=== PATIENT | female | born 1995 | race Hispanic/Latino ===

== ENCOUNTER 2024-01-02 13:14 | Emergency (ER) | payer SELFPAY ==
[2024-01-02] MEDS ORDERED: TETRACAINE HCL 0.5% 4ML OPTH ONE (13:25)
[2024-01-02] MEDS ORDERED: FLUORESCEIN SODIUM 1 MG/WRAP ONE (13:25)
[2024-01-02] MEDS ORDERED: HYDROCODONE/APAP 10/325 TAB ONE (13:43)
[2024-01-02] MEDS ORDERED: MORPHINE 4 MG/ML SYR ONE (14:25)
[2024-01-02] MEDS ORDERED: LORazepam 2 MG/ML VIAL ONE (14:25)
--- NOTE | 2024-01-02 15:01 | RAD REPORT ---
EXAM DESCRIPTION: CT - CTFB CLINICAL HISTORY: ocular trauma COMPARISON: No comparisons TECHNIQUE: Axial thin cut noncontrast CT images of the face were obtained with sagittal and coronal reconstruction images. All CT scans are performed using dose optimization technique as appropriate and may include automated exposure control or mA/KV adjustment according to patient size. FINDINGS: Right preseptal mild edema and fat stranding most pronounced along the lids. No retro jojo nal fat stranding or mass. No subperiosteal collection. Extra ocular muscles are symmetric. Globes ar e symmetric. No acute facial bone fracture is seen.The mandible is intact. The globes and orbital contents are grossly unremarkable.The paranasal sinuses and mastoids are clear . IMPRESSION: Right preseptal mild edema and fat stranding most pronounced along the lids. No other acute abnormalities.
--- NOTE | 2024-01-02 15:34 | EDPHYS ---
Physician Documentation [facility] Name: Brittni Penn Age: 28 yrs Sex: Female : 1995 Arrival Date: 01/02/2024 Time: 13:14 Bed 15 Private MD: ED Physician Jerry Tuttle HPI: 01/01 14:12 This 28 yrs old Female presents to ER via Ambulatory with complaints of Eye rt Injury, Eye Swelling. 17:43 Patient presents to the ED with injury to the right eye. Patient states that she was rt mowing lawn, when something hit her eye. Unclear if it was wood or a rock. Reports of pain to that area as well as blurry vision. Denies other acute complaints at this time, symptoms are moderate in severity, no other aggravating or alleviating factors.. 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 - Infectious Disease History:: Denies. CDIFF, C. Auris, ESBL, MRSA (w/in 1 year), VRE (w/in 1 year), TB, . - Family history:: not pertinent. - Social history:: Smoking status: Patient denies any tobacco usage or history of. ROS: 17:43 Constitutional: Negative for fever, chills, and weight loss, Skin: Negative for injury, rt rash, and discoloration, Neuro: Negative for headache, weakness, numbness, tingling, and seizure, Psych: Negative for depression, anxiety, suicide ideation, homicidal ideation, and hallucinations, 17:43 Eyes: Positive for pain, redness, Exam: 17:43 Constitutional: This is a well developed, well nourished patient who is awake, alert, rt and in no acute distress. Head/Face: Normocephalic, atraumatic. Skin: Warm, dry with normal turgor. Normal color with no rashes, no lesions, and no evidence of cellulitis. MS/ Extremity: Pulses equal, no cyanosis. Neurovascular intact. Full, normal range of motion. Neuro: Awake and alert, GCS 15, oriented to person, place, time, and situation. Cranial nerves II-XII grossly intact. Motor strength 5/5 in all extremities. Sensory grossly intact. Cerebellar exam normal. Normal gait. 17:43 Eyes: Extra ocular muscles are intact, pupils are equal round and reactive, no hyphema. Right conjunctiva is injected, scant amount of fluorescein uptake, Onesimo sign is negative. There is bruising to the upper eyelid noted, no laceration.. Vital Signs: 13:22 BP 162 / 110; Pulse 91; Resp 16; Temp 98.8; Pulse Ox 98% ; Weight 54.43 kg; Pain 8/10; iw 15:42 BP 145 / 94; Pulse 81; Resp 18; Pulse Ox 100% ; cp4 13:22 Pain Scale: Adult iw Visual Acuity: 15:25 Left Eye React To Light; Right Eye React To Light; Without Lenses; cp4 MDM: 13:31 Patient medically screened. rt 17:43 Differential diagnosis: Corneal abrasion, eyelid contusion, retrobulbar hematoma, rt traumatic iritis. Data reviewed: vital signs, nurses notes. I considered the following discharge prescriptions or medication management in the emergency department Medications were administered in the Emergency Department. See MAR. Independent interpretation of the following test(s) in the Emergency Department CT Scan: My interpretation is No hematoma seen on my interpretation of CT scan images. Counseling: I had a detailed discussion with the patient and/or guardian regarding the historical points, exam findings, and any diagnostic results supporting the discharge/admit diagnosis, radiology results, the need for outpatient follow up. Response to treatment: the patient's symptoms have mildly improved after treatment. ED course: No signs of retrobulbar hematoma, open globe. Suspected traumatic iritis, will give him atropine, pain medicines, for that. Patient struck to follow-up with an eye doctor, return precautions discussed.. 01/01 13:38 Order name: CT Facial Bones W/O Con; Complete Time: 15:07 rt Administered Medications: 13:49 Drug: Colby PO 10 mg-325 mg 1 tabs PO once Route: PO; cp4 14:01 Follow up: Response: No adverse reaction cp4 15:41 Follow up: Response: No adverse reaction cp4 14:29 Drug: LORazepam IM 1 mg IM once Route: IM; Site: left deltoid; cp4 15:41 Follow up: Response: No adverse reaction cp4 14:30 Drug: morphine IM 4 mg IM once Route: IM; Site: right deltoid; cp4 15:41 Follow up: Response: No adverse reaction cp4 Disposition Summary: 01/02/24 15:33 Discharge Ordered Notes: Location: Home rt Problem: new rt Symptoms: have improved rt Condition: Stable rt Diagnosis - Traumatic iritis rt - Contusion of eyelid rt Followup: rt - With: Bo Rawls MD - When: 2 - 3 days - Reason: Discharge Instructions: - Discharge Summary Sheet rt - Eye Contusion rt Forms: - Medication Reconciliation Form rt - Thank You Letter rt - Antibiotic Education rt - Prescription Opioid Use rt - Patient Portal Instructions rt - Leadership Thank You Letter rt Prescriptions: - Homatropaire 5 % Ophthalmic drops - instill 1 drop OPHTHALMIC route 3 times per day as needed; 1 Each; Refills: 0, rt Product Selection Permitted - acetaminophen-codeine 300-30 mg Oral tablet - take 1 tablet ORAL route every 6 hours as needed for pain; 15 tablet; Refills: rt 0, Product Selection Permitted Signatures: Dispatcher [employer] Jeny Faria, RN RN iw Jerry Tuttle MD MD rt Liza Ivy cp4
--- NOTE | 2024-01-02 15:34 | ER ---
Nurse's Notes [facility] Name: Brittni Penn Age: 28 yrs Sex: Female : 1995 Arrival Date: 01/02/2024 Time: 13:14 Bed 15 Private MD: Diagnosis: Traumatic iritis;Contusion of eyelid Presentation: 01/01 13:22 Chief complaint: Patient states: was cutting grass and got something in her right eye, iw it shot out from under the mower. Coronavirus screen: At this time, the client does not indicate any symptoms associated with coronavirus-19. Ebola Screen: Patient negative for fever greater than or equal to 101.5 degrees Fahrenheit, and additional compatible Ebola Virus Disease symptoms Patient denies exposure to infectious person. Patient denies travel to an Ebola-affected area in the 21 days before illness onset. No symptoms or risks identified at this time. Mechanism of Injury:. The patient reports a positive loss of vision. Initial Sepsis Screen: Does the patient meet any 2 criteria? No. Patient's initial sepsis screen is negative. Does the patient have a suspected source of infection? No. Patient's initial sepsis screen is negative. Risk Assessment: Do you want to hurt yourself or someone else? Patient reports no desire to harm self or others. Onset of symptoms was January 02, 2024. 13:22 Method Of Arrival: Ambulatory iw 13:22 Acuity: AINSLEY 3 iw Triage Assessment: 15:44 General: Appears distressed, Behavior is anxious, crying. 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 - Infectious Disease History:: Denies. CDIFF, C. Auris, ESBL, MRSA (w/in 1 year), VRE (w/in 1 year), TB, . - Family history:: not pertinent. - Social history:: Smoking status: Patient denies any tobacco usage or history of. Screenin:25 [facility] ED Fall Risk Assessment (Adult) History of falling in the last 3 months, cp4 including since admission No falls in past 3 months (0 pts) Confusion or Disorientation No (0 pts) Intoxicated or Sedated No (0 pts) Impaired Gait No (0 pts) Mobility Assist Device Used No (0 pt) Altered Elimination No (0 pt) Score/Fall Risk Level 0 - 2 = Low Risk Oriented to surroundings, Maintained a safe environment, Assessed \T\ reinforced patient's understanding of fall precautions, Hourly rounding (assess needs \T\ fall precautionary measures) done. Abuse screen: Denies threats or abuse. Nutritional screening: No deficits noted. Tuberculosis screening: No symptoms or risk factors identified. Assessment: 15:25 Pain: Complains of pain in right eye Pain currently is 10 out of 10 on a pain scale. cp4 EENT: Eyes are tearing on outer aspect of conjuctiva of right eye, iris of right eye and inner aspect of conjuctiva of right eye Sclera/Cornea are reddened in outer aspect of conjuctiva of right eye, iris of right eye and inner aspect of conjuctiva of right eye. Vital Signs: 13:22 BP 162 / 110; Pulse 91; Resp 16; Temp 98.8; Pulse Ox 98% ; Weight 54.43 kg; Pain 8/10; iw 15:42 BP 145 / 94; Pulse 81; Resp 18; Pulse Ox 100% ; cp4 13:22 Pain Scale: Adult iw Visual Acuity: 15:25 Left Eye React To Light; Right Eye React To Light; Without Lenses; cp4 ED Course: 13:16 Patient arrived in ED. ra3 13:17 Jerry Tuttle MD is Attending Physician. rt 13:23 Triage completed. iw 13:23 Arm band placed on. iw 13:24 Liza Ivy is Primary Nurse. cp4 13:45 PO fluids given. [id number] 14:38 CT Facial Bones W/O Con In Process Unspecified. EDMS 15:21 Warm blanket given. jg11 15:25 Bed in low position. Call light in reach. Side rails up X 1. Provided Education on: eye cp4 pain. 15:32 Bo Rawls MD is Referral Physician. rt 15:43 Assist provider with eye exam of right eye. using fluorescein stain, Performed by Jerry Tuttle MD Patient tolerated well. 15:44 Patient did not have IV access during this emergency room visit. cp4 Administered Medications: 13:49 Drug: Watson PO 10 mg-325 mg 1 tabs PO once Route: PO; cp4 14:01 Follow up: Response: No adverse reaction cp4 15:41 Follow up: Response: No adverse reaction cp4 14:29 Drug: LORazepam IM 1 mg IM once Route: IM; Site: left deltoid; cp4 15:41 Follow up: Response: No adverse reaction cp4 14:30 Drug: morphine IM 4 mg IM once Route: IM; Site: right deltoid; cp4 15:41 Follow up: Response: No adverse reaction cp4 Medication: 15:25 VIS not applicable for this client. cp4 Outcome: 15:33 Discharge ordered by MD. rt 15:43 Discharged to home ambulatory, cp4 15:43 Condition: stable 15:43 Discharge instructions given to patient, Instructed on discharge instructions, follow up and referral plans. medication usage, Demonstrated understanding of instructions, follow-up care, medications, Prescriptions given X 2, 15:44 Patient left the ED. cp4 Signatures: Dispatcher [employer] EDMS Jeny Escamilla RN RN iw Jerry Tuttle MD MD rt Liza Ivy cp4 Berny Alejandre [id number] Abby Naidu ra3 Corrections: (The following items were deleted from the chart) 13:23 13:22 BP 162 / ???; Pulse 91bpm; Resp 16bpm; Pulse Ox 98%; Temp 98.8F; 54.43 kg; Pain iw 8/10, Adult; iw
[2024-01-02 16:20] VITALS: BP 145/94; TEMP 98.8; O2SAT 100
== END 2024-01-02 15:44 | disposition home or self-care (01) ==
LOC: ER 13:14
DX: S00.11XA Contusion of right eyelid and periocular area, initial encounter (principal); H20.9 Unspecified iridocyclitis
CPT/HCPCS: 70486; 76377; 96372; 99284